=== PATIENT | male | born 1995 | race Caucasian/White ===

== ENCOUNTER → 2021-08-20 | Emergency (ER) | payer BC ==
[~2021-08-20] VITALS: Ht 165.1 cm; Wt 53.6 kg
[2021-08-20 22:53] LABS: BASO % 0 % (0-3); EOS % 0 % (0-3); HEMOGLOBIN 15.4 g/dL (13.0-17.5); LYMPH % 7 % (24-48); MEAN CORPUSCULAR HEMOGLOBIN 32 pg (25-35); MEAN CORPUSCULAR HGB CONC 34 g/dL (31-37); MEAN CORPUSCULAR VOLUME 95 fL (79-100); MONO # 0.6 x10^3/uL (0.0-1.1); MONO % 4 % (0-9); NEUT % 89 % (31-73); PLATELET COUNT 212 x10^3/uL (140-400); RED BLOOD COUNT 4.86 x10^6/uL (4.30-5.70); RED CELL DISTRIBUTION WIDTH 12.8 % (11.5-14.5); WHITE BLOOD COUNT 14.7 x10^3/uL (4.0-11.0)
[2021-08-20 22:59] LABS: BARBITURATES NEG (NEG); BENZODIAZEPINES NEG (NEG); CALCIUM 9.3 mg/dL (8.5-10.1); CANNABINOIDS POS (NEG); COCAINE NEG (NEG); CREATININE 1.1 mg/dL (0.7-1.3); GFR 81.6; METHADONE NEG (NEG); OPIATES NEG (NEG); PHENCYCLIDINE NEG (NEG); POTASSIUM 3.7 mmol/L (3.5-5.1)
[2021-08-20 23:00] LABS: AMPHETAMINE/METHAMPHETAMINE NEG (NEG)
[2021-08-20 23:05] LABS: ALBUMIN/GLOBULIN RATIO 1.7 (1.0-1.7); TOTAL BILIRUBIN 0.6 mg/dL (0.2-1.0); TOTAL PROTEIN 7.9 g/dL (6.4-8.2)
[2021-08-20 23:07] LABS: ACETAMIN < 2 mcg/ml (10-30); ETHANOL < 10 mg/dL (0-10); SALIC 2.4 mg/dL (2.8-20.0)
--- NOTE | 2021-08-21 00:17 | PHYS DOC ---
Past Medical History Smoking Status: Current Every Day Smoker Alcohol Use: Occasionally General Adult EDM: Chief Complaint: OVERDOSE HPI: HPI: Patient is a 26 year old male who presents with drug overdose. Took a lot of pills of escitalopram. The pills belonged to his mother. I asked the patient repeatedly if he was feeling suicidal. He states that he has not however he only did the deed because he wanted to use drugs. He wanted to have fun. States that he also had a little bit of alcohol today. No fever or chills. No vomiting or diarrhea. No other injuries. Denies any other drug use. Came to the hospital today because he began having some nausea and vomiting Review of Systems: Review of Systems: Constitutional: Denies fever or chills. [] Eyes: Denies change in visual acuity. [] HENT: Denies nasal congestion or sore throat. [] Respiratory: Denies cough or shortness of breath. [] Cardiovascular: Denies chest pain or edema. [] GI: Positive for nausea and vomiting : Denies dysuria. [] Musculoskeletal: Denies back pain or joint pain. [] Integument: Denies rash. [] Neurologic: Denies headache, focal weakness or sensory changes. [] Endocrine: Denies polyuria or polydipsia. [] Lymphatic: Denies swollen glands. [] Psychiatric: Denies depression or anxiety. [] Heart Score: C/O Chest Pain: No Risk Factors: Risk Factors: DM, Current or recent (<one month) smoker, HTN, HLP, family history of CAD, obesity. Risk Scores: Score 0 - 3: 2.5% MACE over next 6 weeks - Discharge Home Score 4 - 6: 20.3% MACE over next 6 weeks - Admit for Clinical Observation Score 7 - 10: 72.7% MACE over next 6 weeks - Early Invasive Strategies Physical Exam: PE: Constitutional: Well developed, well nourished, no acute distress, non-toxic appearance. [] HENT: Normocephalic, atraumatic, bilateral external ears normal, oropharynx moist, no oral exudates, nose normal. [] Eyes: PERRLA, EOMI, conjunctiva normal, no discharge. [] Neck: Normal range of motion, no tenderness, supple, no stridor. [] Cardiovascular:Heart rate regular rhythm, no murmur [] Lungs & Thorax: Bilateral breath sounds clear to auscultation [] Abdomen: Bowel sounds normal, soft, no tenderness, no masses, no pulsatile masses. [] Skin: Warm, dry, no erythema, no rash. [] Back: No tenderness, no CVA tenderness. [] Extremities: No tenderness, no cyanosis, no clubbing, ROM intact, no edema. [] Neurologic: Alert and oriented X 3, normal motor function, normal sensory function, no focal deficits noted. [] Psychologic: Affect normal, judgement normal, mood normal. [] Current Patient Data: Labs: Laboratory Tests Test 08/20/21 22:30 White Blood Count 14.7 x10^3/uL (4.0-11.0) H Red Blood Count 4.86 x10^6/uL (4.30-5.70) Hemoglobin 15.4 g/dL (13.0-17.5) Hematocrit 46.0 % (39.0-53.0) Mean Corpuscular Volume 95 fL (79-100) Mean Corpuscular Hemoglobin 32 pg (25-35) Mean Corpuscular Hemoglobin Concent 34 g/dL (31-37) Red Cell Distribution Width 12.8 % (11.5-14.5) Platelet Count 212 x10^3/uL (140-400) Neutrophils (%) (Auto) 89 % (31-73) H Lymphocytes (%) (Auto) 7 % (24-48) L Monocytes (%) (Auto) 4 % (0-9) Eosinophils (%) (Auto) 0 % (0-3) Basophils (%) (Auto) 0 % (0-3) Neutrophils # (Auto) 13.0 x10^3/uL (1.8-7.7) H Lymphocytes # (Auto) 1.0 x10^3/uL (1.0-4.8) Monocytes # (Auto) 0.6 x10^3/uL (0.0-1.1) Eosinophils # (Auto) 0.0 x10^3/uL (0.0-0.7) Basophils # (Auto) 0.0 x10^3/uL (0.0-0.2) Sodium Level 140 mmol/L (136-145) Potassium Level 3.7 mmol/L (3.5-5.1) Chloride Level 103 mmol/L (98-107) Carbon Dioxide Level 22 mmol/L (21-32) Anion Gap 15 (6-14) H Blood Urea Nitrogen 12 mg/dL (8-26) Creatinine 1.1 mg/dL (0.7-1.3) Estimated GFR (Cockcroft-Gault) 81.6 BUN/Creatinine Ratio 11 (6-20) Glucose Level 168 mg/dL (70-99) H Calcium Level 9.3 mg/dL (8.5-10.1) Total Bilirubin 0.6 mg/dL (0.2-1.0) Aspartate Amino Transferase (AST) 14 U/L (15-37) L Alanine Aminotransferase (ALT) 15 U/L (16-63) L Alkaline Phosphatase 77 U/L (46-116) Troponin I High Sensitivity < 4 ng/L (4-75) L Total Protein 7.9 g/dL (6.4-8.2) Albumin 5.0 g/dL (3.4-5.0) Albumin/Globulin Ratio 1.7 (1.0-1.7) Lipase 392 U/L (73-393) Salicylates Level 2.4 mg/dL (2.8-20.0) L Salicylate Last Dose Date Salicylate Last Dose Time Urine Opiates Screen Neg (NEG) Urine Methadone Screen Neg (NEG) Acetaminophen Level < 2 mcg/ml (10-30) L Acetaminophen Last Dose Date Acetaminophen Last Dose Time Urine Barbiturates Neg (NEG) Urine Phencyclidine Screen Neg (NEG) Urine Amphetamine/Methamphetamine Neg (NEG) Urine Benzodiazepines Screen Neg (NEG) Urine Cocaine Screen Neg (NEG) Urine Cannabinoids Screen Pos (NEG) Ethyl Alcohol Level < 10 mg/dL (0-10) Urine Ethyl Alcohol Pos (NEG) Laboratory Tests 08/20/21 22:30 Laboratory Tests 08/20/21 22:30 EKG: EKG: [] Radiology/Procedures: Radiology/Procedures: [] Course & Med Decision Making: Course & Med Decision Making Pertinent Labs and Imaging studies reviewed. (See chart for details) Per [facility] the patient had a significant dose of SSRIs. We will monitor his QTC with serial EKGs and admit for further work-up. They recommend 13 hours of observation. Ingestion was just prior to arrival Rosa Disclaimer: Dragzoraida Disclaimer: This electronic medical record was generated, in whole or in part, using a voice recognition dictation system. Departure Departure Impression: Primary Impression: Intentional SSRI (selective serotonin reuptake inhibitor) overdose Disposition: ADMITTED INPATIENT Condition: STABLE RAISA JANSEN MD August 21, 2021 00:17
--- NOTE | 2021-08-21 03:20 | EKG ---
[facility] [address] [place] [address] Test Date: 2021-08-20 Test Time: 11:33:13 Pat Name: HENRIQUE JOHNSON Department: Room: Gender: M Door Manager: KEI : 1995 Requested By: RAISA JANSEN Order Number: [id number] Reading MD: Kenneth Hernandez Measurements Intervals [place] Rate: 67 P: 59 NH: 168 QRS: 53 QRSD: 86 T: 36 QT: 412 QTc: 438 Interpretive Statements SINUS BRADYCARDIA INCOMPLETE RIGHT BUNDLE BRANCH BLOCK MILD NON SPECIFIC ST CHANGES Electronically Signed On 08-24-2021 11:30:48 CDT by Kenneth Hernandez
--- NOTE | 2021-08-21 03:36 | EKG ---
[facility] [address] [place] [address] Test Date: 2021-08-21 Test Time: 03:26:41 Pat Name: HENRIQUE JOHNSON Department: Room: Gender: M Board Catcher: KEI : 1995 Requested By: RAISA JANSEN Order Number: [id number] Reading MD: Kenneth Hernandez Measurements Intervals [place] Rate: 60 P: 0 AL: 134 QRS: 61 QRSD: 84 T: 60 QT: 438 QTc: 438 Interpretive Statements SINUS RHYTHM MILD NON SPECIFIC ST CHANGES Electronically Signed On 08-21-2021 9:58:21 CDT by Kenneth Hernandez
--- NOTE | 2021-08-21 12:03 | DISCH ---
DISCHARGE INSTRUCTIONS Condition on Discharge Condition on Discharge: Stable Activity After Discharge Activity Instructions for Disc: No restrictions Community/Resources/Services Services at Discharge: Outpatient Therapy ([facility], 24 hr support with [facility].) ROLA KHOURY MD August 21, 2021 12:03
[2021-08-21 12:29] VITALS: BP 215/129
== END | disposition home or self-care (01) ==
LOC: ER 22:16
DX: T43.222A Poisoning by selective serotonin reuptake inhibitors, intentional self-harm, initial encounter (principal); F17.200 Nicotine dependence, unspecified, uncomplicated; Y92.89 Other specified places as the place of occurrence of the external cause
CPT/HCPCS: 36415; 80053; 80307; 80329; 83690; 84484; 85025; 93005; 99285; G0480; 99283